=== PATIENT | female | born 1980 | race Caucasian/White ===

== ENCOUNTER 2017-02-02 16:09 | Emergency (ER) | payer OTHER ==
[2017-02-02 16:21] VITALS: TEMP 98.1; BMI 29.8
[2017-02-02] MEDS ORDERED: SODIUM CHLORIDE 1,000 ML IV STA ×2 (16:22→18:36)
--- NOTE | 2017-02-02 16:23 | PDOC ---
Rapid Medical Evaluation Time Seen by Provider: 02/02/17 16:14 Medical Evaluation: Allergies Allergy/AdvReac Type Severity Reaction Status Date / Time amoxicillin Allergy Verified 01/21/16 20:44 acetaminophen [From Percocet] AdvReac Verified 01/21/16 20:43 oxycodone HCl [From Percocet] AdvReac Verified 01/21/16 20:43 02/02/17 16:18 I have performed a brief in-person evaluation of this patient. Ms. Waller is a 36 yo F presenting to the ER with a complaint of nausea, inability to tolerate po, abdominal pain (+) diarrhea Symptoms actually began with URI symptoms earlier in the week Pertinent physical exam findings: Lungs clear Abd soft Non distended I have ordered the following: labs saline lock IVF The patient will proceed to the ED for further evaluation. 02/02/17 16:23 02/02/17 17:02
[2017-02-02 17:02] LABS: MCH 29.8 pg (25.7-33.7); MCHC 33.8 g/dl (32.0-36.0); MEAN CELL VOLUME 88.1 fl (80-96); MEAN PLT VOLUME 7.4 fl (7.5-11.1); PLATELET COUNT 220 K/MM3 (134-434); RDW 14.1 % (11.6-15.6); WHITE BLOOD COUNT 5.5 K/mm3 (4.0-10.0)
[2017-02-02] MEDS ORDERED: FAMOTIDINE 20 MG/50 ML IVPB 50 ML IVPB ONE ×2 (18:08→18:35)
[2017-02-02] MEDS ORDERED: ONDANSETRON 4 MG/2 ML VIAL IVPUSH ONE (18:08)
--- NOTE | 2017-02-02 18:20 | PDOC ---
History of Present Illness - General Chief Complaint: Pain Stated Complaint: VOMITING/SORE THROAT Time Seen by Provider: 02/02/17 16:14 History Source: Patient Exam Limitations: No Limitations - History of Present Illness Initial Comments: CHIEF COMPLAINT: 36 y/o afebrile female with no significant PMH c/o nausea, vomiting, diarrhea and sore throat today. HISTORY OF PRESENT ILLNESS: The patient states she's had a sore throat on and off for a few days but this morning began having her stomach symptoms. She does admit her daughter had similar symptoms at home. She denies f/c, BRADLEY, cough , runny nose, CP, SOB, abd pain, back pain, hematuria, dysuria. She has not been able to keep anything down today. Vital signs on arrival are notable for pulse of 94 with BP of 98/64. REVIEW OF SYSTEMS: GENERAL/CONSTITUTIONAL: No fever/chills. No weakness. No weight change. HEAD, EYES, EARS, NOSE AND THROAT: No change in vision. No ear pain or discharge. No sore throat. +sore throat RESPIRATORY: No cough, wheezing, or hemoptysis. GASTROINTESTINAL: +nausea, vomiting and diarrhea. GENITOURINARY: No dysuria, frequency, or change in urination. MUSCULOSKELETAL: No joint or muscle swelling or pain. No neck or back pain. SKIN: No rash or easy bruising. NEUROLOGIC: No headache, vertigo, loss of consciousness, or loss of sensation. PHYSICAL EXAM: GENERAL: The patient is awake, alert, and fully oriented, in no acute distress. She has a hoarse voice. HEAD: Normal with no signs of trauma. ENT: Pupils equal, round and reactive to light, extraocular movements intact, sclera anicteric, conjunctiva clear. Erythematous posterior pharynx without tonsilar edema or exudate. Mucous membranes mildly dry. LUNGS: Clear to auscultation bilaterally. Normal excursion. No respiratory distress or use of accessory muscles. CV: RRR, S1/S2, no MRG. Cap refill < 2 sec. ABDOMEN: Soft, non-distended, minimal TTP of LLQ, no hepatomegaly or splenomegaly, no masses. No rebound, guarding or rigidity. EXTREMITIES: Normal range of motion, no edema. NEUROLOGICAL: Normal speech, normal gait. CN II-XII grossly intact. PSYCH: Normal mood, normal affect. SKIN: Warm, dry, normal turgor, no rashes or lesions noted. Past History - Past Medical History Allergies/Adverse Reactions: Allergies Allergy/AdvReac Type Severity Reaction Status Date / Time amoxicillin Allergy Verified 02/02/17 16:21 acetaminophen [From Percocet] AdvReac Verified 02/02/17 16:21 oxycodone HCl [From Percocet] AdvReac Verified 02/02/17 16:21 Home Medications: Ambulatory Orders NK [No Known Home Medication] 02/02/17 Asthma: No Cancer: No Cardiac Disorders: No Diabetes: No HTN: No Seizures: No Thyroid Disease: No - Immunization History Immunization Up to Date: Yes - Psycho/Social/Smoking Cessation Hx Anxiety: No Suicidal Ideation: No Smoking Status: No Smoking History: Never smoked Have you smoked in the past 12 months: No Number of Cigarettes Smoked Daily: 0 Information on smoking cessation initiated: No 'Breaking Loose' booklet given: 12/04/13 Hx Alcohol Use: No Drug/Substance Use Hx: No Substance Use Type: None Hx Substance Use Treatment: No *Physical Exam - Vital Signs Last Vital Signs Temp Pulse Resp BP Pulse Ox 98.1 F 94 H 18 98/64 99 02/02/17 16:18 02/02/17 16:18 02/02/17 16:18 02/02/17 16:18 02/02/17 16:18 ED Treatment Course - LABORATORY CBC & Chemistry Diagram: 02/02/17 16:55 02/02/17 16:55 - ADDITIONAL ORDERS Additional order review: Laboratory Results 02/02/17 16:55 Serum , Qual Negative 02/02/17 16:55 RBC 4.32 MCV 88.1 MCHC 33.8 RDW 14.1 MPV 7.4 L D Neutrophils % Y Lymphocytes % Y Medical Decision Making - Medical Decision Making A/P: 36 y/o female with signs and symptoms of gastroenteritis. Plan is as follows: 1. Labs 2. UA 3. IV fluids 4. IV zofran 5. IV pepcid I am signing this patient out to my colleague: BIBI Pereyra In brief, this patient is being seen in the ED for a chief complaint of: nausea and vomiting I have completed the initial assessment interview note and have ordered: labs, UA I have reviewed the following results: none Pending results are: all Plan for disposition is as follows: Reassess after meds and fluids; most likely discharge. *DC/Admit/Observation/Transfer Diagnosis at time of Disposition: Gastroenteritis - Discharge Dispostion Disposition: HOME Condition at time of disposition: Stable - Patient Instructions Printed Discharge Instructions: DI for Viral Gastroenteritis -- Adult, Gastroenteritis Diet Additional Instructions: You were given water in the emergency department without feeling nauseous or any vomiting episodes. You state that you feel better and therefore, you will be discharged home with your . Follow-up with your physician in 2 days. Return back to the emergency department for recurrent/persistent/severe or worsening symptoms.
[2017-02-02 18:27] LABS: PLATELET ESTIMATE ADEQUATE (NORMAL)
[2017-02-02] MEDS ORDERED: ONDANSETRON 4 MG/2 ML VIAL ONE (18:35)
[2017-02-02 18:40] LABS: ALBUMIN 3.7 g/dl (3.4-5.0); AMYLASE 29 U/L (25-115); ANION GAP 11 (8-16); CALCIUM 8.8 mg/dL (8.5-10.1); CO2 25 mmol/L (21-32); CREATININE 0.7 mg/dL (0.55-1.02); GLUCOSE,RANDOM 87 mg/dL (74-106); SGOT/AST 30 U/L (15-37); SGPT/ALT 47 U/L (12-78)
[2017-02-02 18:41] LABS: ALK PHOS 72 U/L (45-117); BILIRUBIN,TOTAL 0.6 mg/dL (0.2-1.0)
--- NOTE | 2017-02-02 18:55 | PDOC ---
*Physical Exam - Vital Signs Last Vital Signs Temp Pulse Resp BP Pulse Ox 98.1 F 94 H 18 98/64 99 02/02/17 16:18 02/02/17 16:18 02/02/17 16:18 02/02/17 16:18 02/02/17 16:18 ED Treatment Course - LABORATORY CBC & Chemistry Diagram: 02/02/17 16:55 02/02/17 16:55 - ADDITIONAL ORDERS Additional order review: Laboratory Results 02/02/17 02/02/17 16:55 16:55 Sodium 140 Potassium 3.9 Chloride 104 Carbon Dioxide 25 Anion Gap 11 BUN 13 D Creatinine 0.7 Creat Clearance w eGFR > 60 Random Glucose 87 Calcium 8.8 Total Bilirubin 0.6 D AST 30 D ALT 47 D Alkaline Phosphatase 72 Total Protein 7.0 Albumin 3.7 Total Amylase 29 Lipase 93 Serum , Qual Negative 02/02/17 16:55 RBC 4.32 MCV 88.1 MCHC 33.8 RDW 14.1 MPV 7.4 L D Neutrophils % 85.0 H D Lymphocytes % 4.0 L D Monocytes % 4.0 - Medications Given in the ED: ED Medications Discontinued Medications Generic Name Dose Route Start Last Admin Trade Name Freq PRN Reason Stop Dose Admin Famotidine/Sodium Chloride 50 mls @ 100 mls/hr 02/02/17 18:08 02/02/17 18:38 Pepcid 20 Mg Premixed Ivpb - IVPB 02/02/17 18:37 100 mls/hr ONCE ONE Administration Ondansetron HCl 4 mg 02/02/17 18:08 02/02/17 18:38 Zofran Injection IVPUSH 02/02/17 18:09 4 mg ONCE ONE Administration Medical Decision Making - Medical Decision Making 02/02/17 18:55 Pt seen by the Advanced Practice Provider under my direct supervision Ancillary studies reviewed I agree with plan as outlined by the Advanced Practice Provider BIBI Damon *DC/Admit/Observation/Transfer Diagnosis at time of Disposition: Gastroenteritis - Referrals - Patient Instructions Printed Discharge Instructions: DI for Viral Gastroenteritis -- Adult, Gastroenteritis Diet - Post Discharge Activity
--- NOTE | 2017-02-02 20:21 | PDOC ---
*Physical Exam - Vital Signs Last Vital Signs Temp Pulse Resp BP Pulse Ox 98.1 F 94 H 18 98/64 99 02/02/17 16:18 02/02/17 16:18 02/02/17 16:18 02/02/17 16:18 02/02/17 16:18 ED Treatment Course - LABORATORY CBC & Chemistry Diagram: 02/02/17 16:55 02/02/17 16:55 - ADDITIONAL ORDERS Additional order review: Laboratory Results 02/02/17 02/02/17 16:55 16:55 Sodium 140 Potassium 3.9 Chloride 104 Carbon Dioxide 25 Anion Gap 11 BUN 13 D Creatinine 0.7 Creat Clearance w eGFR > 60 Random Glucose 87 Calcium 8.8 Total Bilirubin 0.6 D AST 30 D ALT 47 D Alkaline Phosphatase 72 Total Protein 7.0 Albumin 3.7 Total Amylase 29 Lipase 93 Serum , Qual Negative 02/02/17 16:55 RBC 4.32 MCV 88.1 MCHC 33.8 RDW 14.1 MPV 7.4 L D Neutrophils % 85.0 H D Lymphocytes % 4.0 L D Monocytes % 4.0 - Medications Given in the ED: ED Medications Discontinued Medications Generic Name Dose Route Start Last Admin Trade Name Freq PRN Reason Stop Dose Admin Famotidine/Sodium Chloride 50 mls @ 100 mls/hr 02/02/17 18:08 02/02/17 18:38 Pepcid 20 Mg Premixed Ivpb - IVPB 02/02/17 18:37 100 mls/hr ONCE ONE Administration Sodium Chloride 1,000 mls @ 1,000 mls/hr 02/02/17 18:36 02/02/17 18:38 Normal Saline - IV 02/02/17 19:35 1,000 mls/hr ASDIR STA Administration Ondansetron HCl 4 mg 02/02/17 18:08 02/02/17 18:38 Zofran Injection IVPUSH 02/02/17 18:09 4 mg ONCE ONE Administration *DC/Admit/Observation/Transfer Diagnosis at time of Disposition: Gastroenteritis - Discharge Dispostion Disposition: HOME Condition at time of disposition: Stable Admit: No - Referrals - Patient Instructions Printed Discharge Instructions: DI for Viral Gastroenteritis -- Adult, Gastroenteritis Diet Additional Instructions: You were given water in the emergency department without feeling nauseous or any vomiting episodes. You state that you feel better and therefore, you will be discharged home with your . Follow-up with your physician in 2 days. Return back to the emergency department for recurrent/persistent/severe or worsening symptoms. - Post Discharge Activity
[2017-02-02 20:22] VITALS: BP 105/61; PULSE 77
== END 2017-02-02 20:22 | disposition home or self-care (01) ==
LOC: JER 16:09
PROC: 3E033GC Introduction of Other Therapeutic Substance into Peripheral Vein, Percutaneous Approach (ICD-10-PCS; principal; 2017-02-02)
PROC: 3E0337Z Introduction of Electrolytic and Water Balance Substance into Peripheral Vein, Percutaneous Approach (ICD-10-PCS; 2017-02-02)
DX: K52.9 Noninfective gastroenteritis and colitis, unspecified (principal)
CPT/HCPCS: 36415; 80053; 82150; 83690; 84703; 85025; 99283-25

== ENCOUNTER 2020-01-02 20:03 | Emergency (ER) | payer OTHER ==
[2020-01-02 20:17] VITALS: BP 108/66; PULSE 65; TEMP 97.9; BMI 29.8
[2020-01-02] MEDS ORDERED: KETOROLAC TROMETHAMINE 30 MG/1 ML VIAL IM ONE (21:35)
[2020-01-02] MEDS ORDERED: diazePAM 5 MG TABLET PO ONE (21:35)
--- NOTE | 2020-01-02 21:35 | PDOC ---
History of Present Illness - General Chief Complaint: Pain Stated Complaint: LEFT ARM NUMBNES BACK P AIN Time Seen by Provider: 01/02/20 20:37 History Source: Patient - History of Present Illness Initial Comments: 01/02/20 21:52 39-year-old female complaining of left shoulder pain radiating to the left arm reports that she was kickboxing the day before unsure if she strained a muscle. Patient reports some numbness to left hand. None denies spine pain, weakness to legs, incontinence of bowel or urine. Patient reports pain is worse with movement Past History - Past Medical History Allergies/Adverse Reactions: Allergies Allergy/AdvReac Type Severity Reaction Status Date / Time amoxicillin Allergy Verified 01/02/20 20:17 acetaminophen [From Percocet] AdvReac Verified 01/02/20 20:17 oxycodone HCl [From Percocet] AdvReac Verified 01/02/20 20:17 Home Medications: Ambulatory Orders Cyclobenzaprine HCl [Flexeril -] 10 mg PO TID PRN #10 tablet 01/02/20 Ibuprofen 600 mg PO QID PRN #20 tablet 01/02/20 Asthma: No Cancer: No Cardiac Disorders: No COPD: No Diabetes: No HTN: No Seizures: No Thyroid Disease: No - Immunization History Immunization Up to Date: Yes - Psycho Social/Smoking Cessation Hx Smoking Status: No Smoking History: Current every day smoker Have you smoked in the past 12 months: No Number of Cigarettes Smoked Daily: 0 Information on smoking cessation initiated: No 'Breaking Loose' booklet given: 12/04/13 Hx Alcohol Use: No Drug/Substance Use Hx: No Substance Use Type: None Hx Substance Use Treatment: No Review of Systems - Review of Systems Able to Perform ROS?: Yes Is the patient limited Lebanese proficient: No Musculoskeletal: Yes: Muscle Pain *Physical Exam - Vital Signs Last Vital Signs Temp Pulse Resp BP Pulse Ox 97.9 F 65 18 108/66 100 01/02/20 20:14 01/02/20 20:14 01/02/20 20:14 01/02/20 20:14 01/02/20 20:14 - Physical Exam General Appearance: Yes: Appropriately Dressed Respiratory/Chest: positive: Lungs Clear, Normal Breath Sounds Musculoskeletal: negative: Vertebral Tenderness Extremity: positive: Normal Capillary Refill, Other (ABLE TO TOUCH OPPOSITE SHOULDER NO MIDLINE PAIN) Integumentary: positive: Normal Color, Dry, Warm Neurologic: positive: Fully Oriented, Alert ED Progress Note - Progress Note Progress Note: 01/02/20 21:55 a: MUSCLE SPASM p: VALIUM TORADOL Discharge - Discharge Information Problems reviewed: Yes Clinical Impression/Diagnosis: Muscle spasm of back Disposition: HOME - Additional Discharge Information Prescriptions: Cyclobenzaprine HCl [Flexeril -] 10 mg PO TID PRN #10 tablet PRN Reason: Muscle Spasms Ibuprofen 600 mg PO QID PRN #20 tablet PRN Reason: Pain - Follow up/Referral - Patient Discharge Instructions Patient Printed Discharge Instructions: Muscle Strain Additional Instructions: Do light stretches Apply ice to the area for the first 24 hours. Then alternate with ice and heat after. Take ibuprofen every 6 hours as needed for pain. Take Flexeril as prescribed for muscle spasm. Flexeril can make you sleepy, do not drive or operate heavy machinery after taking the medication. Follow-up with an orthopedic doctor if symptoms persist. A referral was given to you today. Return to the emergency room for any worsening symptoms. - Post Discharge Activity Work/Back to School Note: Back to Work
[2020-01-02] MEDS ORDERED: KETOROLAC TROMETHAMINE 30 MG/1 ML VIAL ONE (21:48)
[2020-01-02] MEDS ORDERED: diazePAM 5 MG TABLET ONE (21:48)
== END 2020-01-02 22:10 | disposition home or self-care (01) ==
LOC: JERFT 20:03
PROC: 3E0233Z Introduction of Anti-inflammatory into Muscle, Percutaneous Approach (ICD-10-PCS; principal; 2020-01-02)
DX: M62.830 Muscle spasm of back (principal); Z88.1 Allergy status to other antibiotic agents; Z88.5 Allergy status to narcotic agent; Z88.6 Allergy status to analgesic agent
CPT/HCPCS: 99284-25